=== PATIENT | female | born 1990 | race Asian ===

== ENCOUNTER 2024-12-19 07:51 | Inpatient (IN) | payer BC ==
[2024-12-18 12:32] LABS: Hematocrit 39.3 % (34.9-44.5); Hemoglobin 13.2 g/dL (12.0-15.5); Mean Corpuscular Hemoglobin 28.9 pg (27.0-33.0); Mean Corpuscular Volume 86.2 fL (81.6-98.3); Platelet Count 217 10x3/uL (150-450); Red Blood Cell (RBC) Count 4.56 10x6/uL (3.90-5.03); White Blood Cell (WBC) Count 13.04 10x3/uL (3.5-10.5)
[2024-12-18 12:33] LABS: Syphilis Antibody Index 0.06 S/CO (<1.00 Non-Reactive)
[2024-12-18 12:35] LABS: HIV (1/2) Antibody/Antigen Non-Reactive (NonReactive); HIV 1/2 INDEX 0.11 S/CO (<1.00); Hep B Surf Ag Non-Reactive S/CO (NonReactive)
[2024-12-19] MEDS ORDERED: Carboprost 250 MCG/ML AMP IM PRN (08:08)
[2024-12-19] MEDS ORDERED: Ondansetron PF 4 MG/2 ML Vial IVP PRN ×4 (08:08→15:20)
[2024-12-19] MEDS ORDERED: Diphenoxylate HCl/Atropine Tablet PO PRN ×2 (08:08)
[2024-12-19] MEDS ORDERED: Methylergonovine 0.2 MG/ML VIAL IM PRN (08:08)
[2024-12-19] MEDS ORDERED: Oxytocin 30 units/NS 500 ML 500 ML IV SCH ×2 (08:08→15:20)
[2024-12-19] MEDS ORDERED: Famotidine/PF 20 mg/2ml Vial SLOW IVP PRN (08:08)
[2024-12-19] MEDS ORDERED: Bicitra 30 ML UDCUP PO PRN (08:08)
[2024-12-19 08:26] VITALS: BMI 41.1
[2024-12-19] MEDS ORDERED: HYDROmorphone 0.5 MG/0.5 ML SYRINGE SLOW IVP PRN (09:28)
[2024-12-19] MEDS ORDERED: Meperidine HCl/PF 25 MG (1 mL) VIAL SLOW IVP PRN (09:28)
[2024-12-19] MEDS ORDERED: diphenhydrAMINE 50 MG/ML VIAL IVP PRN (09:28)
[2024-12-19] MEDS ORDERED: Communication Order-Pharmacy FS SCH (09:30)
[2024-12-19] MEDS ORDERED: Ketorolac Tromethamine 30 MG (1 mL) VIAL IVP SCH (09:30)
[2024-12-19 10:43] LABS: Analyzer IN Cardio CS NICU; Critical Notified By: S. CREAMER, RRT; RapidComm Collect By RN, SHANNA
[2024-12-19 10:44] LABS: Analyzer IN Cardio CS NICU; Critical Notified By: S. CREAMER, RRT; RapidComm Collect By RN, SHANNA; pH (Cord, venous) 7.215 (7.250-7.350)
[2024-12-19] MEDS: hydrALAZINE 20 MG/ML VIAL SLOW IVP PRN (12:12)
[2024-12-19] MEDS ORDERED: Calcium Gluc 4.6 MEQ/10 ML (100 MG/ML) SLOW IVP PRN (12:49)
[2024-12-19] MEDS ORDERED: hydrALAZINE 20 MG/ML VIAL SLOW IVP PRN (12:49)
[2024-12-19] MEDS: Magnesium Sulfate 20 gm/500 ml 4 GM/100 ML BAG IVPB ONE (13:22)
[2024-12-19] MEDS ORDERED: Bisacodyl 10 MG SUPP PR PRN (15:20)
[2024-12-19] MEDS ORDERED: Lanolin Ointment 7 GM TUBE TOP PRN (15:20)
[2024-12-19] MEDS ORDERED: HYDROcodone/Acetaminophen 5/325 mg Tablet PO PRN (15:20)
[2024-12-19] MEDS ORDERED: diphenhydrAMINE 25 MG CAP PO PRN (15:20)
[2024-12-20 06:10] LABS: Hematocrit 31.5 % (34.9-44.5); Hemoglobin 10.4 g/dL (12.0-15.5); Mean Corpuscular Hemoglobin 28.1 pg (27.0-33.0); Mean Corpuscular Volume 85.1 fL (81.6-98.3); Platelet Count 198 10x3/uL (150-450); Red Blood Cell (RBC) Count 3.70 10x6/uL (3.90-5.03); White Blood Cell (WBC) Count 13.57 10x3/uL (3.5-10.5)
[2024-12-20] MEDS: Magnesium Sulfate 20 gm/500 ml 20 GM/500 ML BAG IVPB PRN (08:00)
[2024-12-20] MEDS: Ferrous Sulfate 325 MG TAB PO SCH (09:09)
[2024-12-20] MEDS: Acetaminophen 325 MG TAB PO PRN (09:17)
[2024-12-20] MEDS: Ketorolac Tromethamine 30 MG (1 mL) VIAL IVP PRN (09:17)
[2024-12-20] MEDS: Simethicone Chewable 80 MG TAB PO PRN (09:18)
[2024-12-20] MEDS: hydrALAZINE 20 MG/ML VIAL SLOW IVP PRN (09:43)
[2024-12-20] MEDS: Ibuprofen 800 MG TAB PO SCH (15:05)
[2024-12-20] MEDS: HYDROcodone/Acetaminophen 5/325 mg Tablet PO PRN (16:55)
[2024-12-20] MEDS: NIFEdipine XL 30 MG ER.TAB PO SCH (20:59)
[2024-12-21] MEDS: Hepatitis B Vaccine 10 MCG/0.5 ML SYR ONE (03:56)
[2024-12-21] MEDS: PHENYLEPHRINE-NS 100 MCG/ML 10 ML SYRINGE ONE (03:57)
[2024-12-21] MEDS: Oxytocin 10 UNITS/ML VIAL ONE (03:57)
[2024-12-21] MEDS: Erythromycin Base 0.5% Oint 1 GM TUBE ONE (03:57)
[2024-12-21] MEDS: Ondansetron PF 4 MG/2 ML Vial ONE (03:57)
[2024-12-21 08:17] VITALS: TEMP 98
[2024-12-21 12:14] VITALS: BP 140/71
[2024-12-21] MEDS: Boostrix 0.5 ML (Tdap) VIAL (>/=7 yrs of age) IM ONE (12:28)
== END 2024-12-21 14:50 | disposition home or self-care (01) | DRG 787 ==
LOC: CSHLD 07:51 → CSHPED 12-20 02:40 → CSHLD 12-20 02:55 → CSHPED 12-20 15:18
PROVIDERS: ADMIT Obstetrics & Gynecology; ATTEND Obstetrics & Gynecology
PROC: 10D00Z1 Extraction of Products of Conception, Low, Open Approach (ICD-10-PCS; principal; 2024-12-19)
DX: O99.214 Obesity complicating childbirth (principal); D62 Acute posthemorrhagic anemia; E66.813 Obesity, class 3; Z37.0 Single live birth; Z3A.38 38 weeks gestation of pregnancy; O13.4 Gestational [pregnancy-induced] hypertension without significant proteinuria, complicating childbirth; O99.02 Anemia complicating childbirth; O14.94 Unspecified pre-eclampsia, complicating childbirth; Z79.4 Long term (current) use of insulin
CPT/HCPCS: 36415; 36416; 51702; 82805; 85027; 86780; 86850; 86900; 86901; 87340; 87389; J0360; J1885; J2274; J2405; J2590; J3010; J3475